=== PATIENT | female | born 1985 | race African-American/Black ===

== ENCOUNTER 2018-02-05 11:09 | Emergency (ER) | payer MEDICAID, SELFPAY ==
[2018-02-05] MEDS ORDERED: Lidocaine 1% w/Epinephrine 1:100K 20 ML VIAL ONE (11:29)
== END 2018-02-05 12:16 | disposition home or self-care (01) ==
LOC: ERS 11:09
DX: L02.412 Cutaneous abscess of left axilla (principal); I10 Essential (primary) hypertension; F17.210 Nicotine dependence, cigarettes, uncomplicated
CPT/HCPCS: 10060; J2001

== ENCOUNTER 2018-04-17 21:52 | Emergency (ER) | payer SELFPAY ==
[2018-04-17] MEDS ORDERED: Ketorolac Tromethamine 30 MG/ML VIAL ONE (22:42)
[2018-04-17] MEDS ORDERED: Lidocaine 1% w/Epinephrine 1:100K 20 ML VIAL ONE (22:53)
== END 2018-04-17 23:53 | disposition home or self-care (01) ==
LOC: ERS 21:52
DX: L73.2 Hidradenitis suppurativa (principal); I10 Essential (primary) hypertension; F17.210 Nicotine dependence, cigarettes, uncomplicated
CPT/HCPCS: 10060; 96372; J1885; J2001